=== PATIENT | female | born 1935 | race Caucasian/White ===

== ENCOUNTER → 2016-09-09 | Outpatient (CLI) | payer MEDICARE, OTHER ==
[~2016-09-09] MED LIST: ESTRADIOL0.5 MG PO; LEVOTHROID(SYN75 MCG PO; NORVASC5 MG PO; PRAVACHOL20 MG PO; VALSARTAN160 MG PO; VITAMIN D1000 UNI1 PO
== END | disposition disaster alternative care site (69) ==
LOC: GRAD 07:43
DX: J33.9 Nasal polyp, unspecified (principal); J34.89 Other specified disorders of nose and nasal sinuses

== ENCOUNTER → 2016-09-30 | Day surgery (SDC) | payer MEDICARE, OTHER ==
[~2016-09-30] VITALS: Ht 157.5 cm; Wt 46.7 kg
--- NOTE | ~2016-09-30 | OR ---
PATIENT'S NAME: CATERINA WOOTEN [facility] AGE: 80 Y [address] 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 ANESTHESIA: General. PROCEDURE: Surgery includes left nasal endoscopy with biopsies of middle turbinate, total ethmoidectomy, left maxillary antrostomy with removal of contents. HISTORY: Caterina Wooten is a 80-year-old female, who presented to me with left nasal stuffiness. Exam confirmed a mass lesion in the ethmoid region. CT scan confirmed the above as well. The operative indications, potential risks, complications, and options were discussed. The patient wished to proceed with surgery. DESCRIPTION OF PROCEDURE: The patient was brought to the operating room, placed in supine position and administered general anesthesia without incident. The patient was prepped and draped in a normal sterile fashion. The eyes were protected during the operative course and noted to be within normal limits at the termination of the surgery. Initial exam with a nasal endoscope in the left nasal cavity showed a mass lesion from the middle meatus suspicious for middle turbinate with mariluz bullosa. Biopsy was taken and showed edema and no evidence of malignancy. The left middle turbinate was taken down with the shaver device and a total ethmoidectomy was performed. The natural maxillary antrostomy site was opened where thick purulent material was suctioned from the left maxillary antrum. The remnants of the middle turbinate were removed including the mariluz bullosa. This opened the ethmoid cavity widely. The patient tolerated the procedure well. Cultures were taken as well as a biopsy specimen. Bactroban was placed in the ethmoid cavity. Telfa pack was placed prior to extubation. Nasopharynx was suctioned clear of blood. The patient was extubated and taken to the recovery room in stable condition. PATIENT'S NAME: CATERINA WOOTEN [facility] AGE: 80 Y [address] ROOM: [place], [place] [address] LOCATION: [facility] [place] ADMIT DATE: 09/30/2016 OR/Procedure Report DISCHARGE DATE: FAMILY PHYSICIAN: Nora Beauchamp MD ATTENDING PHYSICIAN: Alka Salas ALKA SALAS MD DGO/modl /[id number] d: 09/30/16 0904 t: 10/07/16 0748, OPERATIVE SUMMARY
--- NOTE | 2016-09-30 15:55 | NUR ---
THE PATIENT WAS CALLED AT HOME TO CHECK UP ON HER THIS AFTERNOON. THE PATIENT ANSWERED THE PHONE AND STATED DR. SALAS HAD JUST CALLED HER TEN MINUTES AGO. SHE STATED SHE WAS FEELING BETTER AND MIMINAL NASAL BLEEDING AND NO VOMITING. SHE WAS GOING TO TRY AND START EATING MORE. INFORMED THE PATIENT SHE WOULD ALSO BE GETTING A POST OP PHONE CALL TOMORROW.
== END | disposition disaster alternative care site (69) ==
LOC: GSDC 09-23 11:00 → GPOC 09-23 11:00 → GSDC 05:44
PROC: 09BV4ZZ Excision of Left Ethmoid Sinus, Percutaneous Endoscopic Approach (ICD-10-PCS; principal; 2016-09-30)
PROC: 09BR4ZZ Excision of Left Maxillary Sinus, Percutaneous Endoscopic Approach (ICD-10-PCS; 2016-09-30)
DX: J32.0 Chronic maxillary sinusitis (principal); E78.00 Pure hypercholesterolemia, unspecified; I10 Essential (primary) hypertension; E78.5 Hyperlipidemia, unspecified; Z90.710 Acquired absence of both cervix and uterus; Z90.49 Acquired absence of other specified parts of digestive tract; Z98.41 Cataract extraction status, right eye; Z98.42 Cataract extraction status, left eye; Z98.890 Other specified postprocedural states; Z79.899 Other long term (current) drug therapy
CPT/HCPCS: A9270; J2001; J2405; J7030